=== PATIENT | female | born 1955 | race Caucasian/White ===

== ENCOUNTER 2018-01-03 09:04 | Emergency (ER) | payer SELFPAY ==
[2018-01-03 09:12] VITALS: BMI 34.3
[2018-01-03] MEDS ORDERED: KETOROLAC TROMETHAMINE 30 MG/1 ML VIAL IVPUSH ONE (09:49)
[2018-01-03] MEDS ORDERED: KETOROLAC TROMETHAMINE 30 MG/1 ML VIAL ONE (09:51)
[2018-01-03 10:21] LABS: BASO % 0.6 % (0-2.0); EOS % 3.9 % (0-4.5); HEMATOCRIT 41.6 % (32.4-45.2); HEMOGLOBIN 14.1 GM/dL (10.7-15.3); LYMPH % 33.1 % (8-40); MCH 30.9 pg (25.7-33.7); MCHC 33.9 g/dl (32.0-36.0); MEAN CELL VOLUME 91.3 fl (80-96); MEAN PLT VOLUME 7.5 fl (7.5-11.1); NEUT % 55.4 % (42.8-82.8); PLATELET COUNT 251 K/MM3 (134-434); RBC 4.56 M/mm3 (3.60-5.2); RDW 13.6 % (11.6-15.6); WHITE BLOOD COUNT 6.9 K/mm3 (4.0-10.0)
[2018-01-03 10:48] LABS: ANION GAP 5 (8-16); BLOOD UREA NITROGEN 8 mg/dL (7-18); CALCIUM 9.3 mg/dL (8.5-10.1); CHLORIDE 106 mmol/L (98-107); CO2 31 mmol/L (21-32); CREATININE 0.7 mg/dL (0.55-1.02); GLUCOSE,RANDOM 86 mg/dL (74-106); POTASSIUM 4.6 mmol/L (3.5-5.1); SGOT/AST 15 U/L (15-37); SGPT/ALT 17 U/L (12-78); SODIUM 142 mmol/L (136-145)
[2018-01-03 10:50] LABS: ALK PHOS 105 U/L (45-117); BILIRUBIN,TOTAL 0.4 mg/dL (0.2-1.0); TOT PROT 7.6 g/dl (6.4-8.2)
--- NOTE | 2018-01-03 10:51 | PDOC ---
History of Present Illness - General History Source: Patient - History of Present Illness Timing/Duration: reports: getting worse Abdominal Pain Onset Location: reports: suprapubic <Elizabeth Ruiz - Last Filed: 01/03/18 13:23> <Gregory Wolfe - Last Filed: 01/05/18 18:55> - General Chief Complaint: Pain Stated Complaint: PAIN Time Seen by Provider: 01/03/18 09:36 Past History - Past Medical History COPD: No - Immunization History Immunization Up to Date: Yes - Suicide/Smoking/Psychosocial Hx Smoking History: Never smoked Have you smoked in the past 12 months: No Information on smoking cessation initiated: No Hx Alcohol Use: No Drug/Substance Use Hx: No Substance Use Type: None <Elizabeth Ruiz - Last Filed: 01/03/18 13:23> <YanethGregory - Last Filed: 01/05/18 18:55> - Past Medical History Allergies/Adverse Reactions: Allergies Allergy/AdvReac Type Severity Reaction Status Date / Time No Known Allergies Allergy Verified 01/03/18 09:05 Home Medications: Ambulatory Orders Naproxen 500 mg PO BID #20 tablet 01/03/18 Review of Systems - Review of Systems Constitutional: No: Chills, Fever, Unintentional Wgt. Loss Respiratory: No: Shortness of Breath Cardiac (ROS): No: Chest Pain ABD/GI: Yes: Abdominal cramping. No: Nausea, Vomiting : No: See HPI, Burning, Dysuria, Discharge Musculoskeletal: Yes: Back Pain <Elizabeth Ruiz - Last Filed: 01/03/18 13:23> *Physical Exam - Vital Signs Last Vital Signs Temp Pulse Resp BP Pulse Ox 98.2 F 54 L 18 135/72 100 01/03/18 09:09 01/03/18 09:09 01/03/18 09:09 01/03/18 09:09 01/03/18 09:09 - Physical Exam General Appearance: Yes: Appropriately Dressed, Moderate Distress HEENT: positive: Normal Voice Neck: positive: Supple. negative: Lymphadenopathy (R), Lymphadenopathy (L) Respiratory/Chest: positive: Lungs Clear, Normal Breath Sounds. negative: Respiratory Distress Cardiovascular: positive: Regular Rate, S1, S2 Gastrointestinal/Abdominal: positive: Normal Bowel Sounds, Tender (sig ttp to b/ l suprapubic, no CVAT). negative: Pulsatile Mass, Distended, Guarding, Rebound Musculoskeletal: negative: CVA Tenderness, Vertebral Tenderness Integumentary: positive: Dry, Warm Neurologic: positive: Fully Oriented, Alert, Normal Mood/Affect <Elizabeth Ruiz - Last Filed: 01/03/18 13:23> - Vital Signs Last Vital Signs Temp Pulse Resp BP Pulse Ox 98.6 F 52 L 16 129/58 99 01/03/18 14:03 01/03/18 14:03 01/03/18 14:03 01/03/18 14:03 01/03/18 14:03 <YanethGregory tamez - Last Filed: 01/05/18 18:55> Moderate Sedation - Procedure Monitoring Vital Signs: Vital Signs Temp Pulse Resp BP Pulse Ox 98.2 F 54 L 18 135/72 100 01/03/18 09:09 01/03/18 09:09 01/03/18 09:09 01/03/18 09:09 01/03/18 09:09 <Elizabeth Ruiz - Last Filed: 01/03/18 13:23> ED Treatment Course - LABORATORY CBC & Chemistry Diagram: 01/03/18 10:10 01/03/18 10:10 - ADDITIONAL ORDERS Additional order review: 01/03/18 10:10 RBC 4.56 MCV 91.3 MCHC 33.9 RDW 13.6 MPV 7.5 Neutrophils % 55.4 Lymphocytes % 33.1 D Monocytes % 7.0 Eosinophils % 3.9 Basophils % 0.6 - RADIOLOGY Radiology Studies Ordered: Category Date Time Status ABDOMEN US -LIMITED [US] Stat Ultrasound 01/03/18 09:49 Ordered - Medications Given in the ED: ED Medications Discontinued Medications Generic Name Dose Route Start Last Admin Trade Name Freq PRN Reason Stop Dose Admin Ketorolac Tromethamine 30 mg 01/03/18 09:49 01/03/18 10:02 Toradol Injection - IVPUSH 01/03/18 09:50 30 mg ONCE ONE Administration <Elizabeth Ruiz - Last Filed: 01/03/18 13:23> - LABORATORY CBC & Chemistry Diagram: 01/03/18 10:10 01/03/18 10:10 - ADDITIONAL ORDERS Additional order review: 01/03/18 10:10 RBC 4.56 MCV 91.3 MCHC 33.9 RDW 13.6 MPV 7.5 Neutrophils % 55.4 Lymphocytes % 33.1 D Monocytes % 7.0 Eosinophils % 3.9 Basophils % 0.6 - Medications Given in the ED: ED Medications Discontinued Medications Generic Name Dose Route Start Last Admin Trade Name Thi PRN Reason Stop Dose Admin Ketorolac Tromethamine 30 mg 01/03/18 09:49 01/03/18 10:02 Toradol Injection - IVPUSH 01/03/18 09:50 30 mg ONCE ONE Administration <Gregory Wolfe - Last Filed: 01/05/18 18:55> Medical Decision Making - Medical Decision Making 01/03/18 10:41 62 yo F, no sig hx, p/e severe lower back pain radiating to groin b/l x 1 week, worse today. No dysuria, hematuria, n/v/f/c. Seen at [facility] yesterday and had neg labs and CT a/p + which demonstrated hepatic steatosis, w / moderately distended gallbadder without radiopaque stone or wall thickening. No renal stones, appy or diverticulitis. Pancreas unremarkable and abd aorta normal in caliber as per report that pt has on her person. States she was not sent home w/ pain meds See exam Back/abd pain x 1 week S/p neg labs w/ CT a/p + w/ moderately dilated GB without stones/wall thickening on CT at [facility] yesterday (has report on her person) Etiology unclear at this time -pain control -rpt labs/ua -US assess gallbladder 01/03/18 13:23 Labs unremarkable. Ultrasound read as multiple calculi with contracted gallbladder. No evidence of acute zaheer i.e., wall thickening or fluid. On reassessment, patient appears very comfortable and reports no pain at this time after receiving toradol. Repeat abdominal exam benign with no tenderness currently. Case discussed with Dr. Wolfe who agrees that patient can be discharged with outpatient pain control. Will refer to PMD as patient currently does not have a provider. Reasons to return discussed with patient 01/03/18 13:31 <Elizabeth Ruiz - Last Filed: 01/03/18 13:23> - Medical Decision Making 01/05/18 18:54 The patient was seen and evaluated in conjunction with HEATH Ruiz under my direct supervision, ancillary studies were reviewed. I agree with the plan as outlined by HEATH Ruiz . <Gregory Wolfe - Last Filed: 01/05/18 18:55> *DC/Admit/Observation/Transfer <SaraElizabeth - Last Filed: 01/03/18 13:23> <Gregory Wolfe - Last Filed: 01/05/18 18:55> Diagnosis at time of Disposition: Abdominal pain Qualifiers: Abdominal location: unspecified location Qualified Code(s): R10.9 - Unspecified abdominal pain - Discharge Dispostion Disposition: HOME Condition at time of disposition: Improved - Prescriptions Prescriptions: Naproxen 500 mg PO BID #20 tablet - Referrals Referrals: Leodan Barrera MD [Staff Physician] - - Patient Instructions Additional Instructions: La causa de floyd dolor no est raquel en nikki momento ya que floyd trabajo de laboratorio hoy fue normal. Floyd ultrasonido s mostr clculos en floyd vescula biliar hoy, lexie no hay evidencia de infeccin. Segn floyd ubicacin del dolor, no parece que kayla clculos biliares alo rosemarie diana de floyd dolor en nikki momento. Se le recet naproxeno, tome segn las indicaciones. Por favor, marce un seguimiento con el Dr. Leodan Barrera para kayla necesidades de atencin primaria. Por favor regrese a la tobi de urgencias por cualquier empeoramiento de los sntomas
[2018-01-03 11:16] LABS: URINE APPEARANCE CLEAR; URINE BILIRUBIN NEGATIVE (<2.0 mg/dL); URINE COLOR STRAW; URINE GLUCOSE (UA) NEGATIVE (NEGATIVE); URINE KETONE NEGATIVE (NEGATIVE); URINE LEUK ESTERASE NEGATIVE (NEGATIVE); URINE NITRITE NEGATIVE (NEGATIVE); URINE PROTEIN NEGATIVE (NEGATIVE); URINE UROBILINOGEN NEGATIVE mg/dL (0.2-1.0)
[2018-01-03 14:05] VITALS: BP 129/58; PULSE 52; TEMP 98.6
== END 2018-01-03 14:06 | disposition home or self-care (01) ==
LOC: JER 09:04
PROC: 3E0333Z Introduction of Anti-inflammatory into Peripheral Vein, Percutaneous Approach (ICD-10-PCS; principal; 2018-01-03)
DX: K80.20 Calculus of gallbladder without cholecystitis without obstruction (principal)
CPT/HCPCS: 36415; 76705-TC; 80053; 81003; 83690; 85025; 99284-25

== ENCOUNTER 2018-07-07 19:58 | Inpatient (IN) | payer OTHER ==
--- NOTE | 2018-07-07 20:17 | PDOC ---
Rapid Medical Evaluation Time Seen by Provider: 07/07/18 20:14 Medical Evaluation: Allergies Allergy/AdvReac Type Severity Reaction Status Date / Time No Known Allergies Allergy Verified 01/03/18 09:05 07/07/18 20:14 I have performed a brief in person evaluation of this patient. The patient presents with a chief complaints of: epigastric abd pain with n/v x6 episoades (NBNB) w/o f/c/d. Episodes started at ~1400hrs Pertinent physical exam findings: epigastric pain on palp I have ordered the following: cbc/cmp,iv,pepcid 20mg/Maalox, ekg, zofran 4mg ivp The patient will proceed to the ED for further evaluation.
[2018-07-07] MEDS ORDERED: SODIUM CHLORIDE 1,000 ML IV STA (20:18)
[2018-07-07] MEDS ORDERED: ONDANSETRON 4 MG/2 ML VIAL IVPUSH ONE (20:18)
[2018-07-07] MEDS ORDERED: FAMOTIDINE 20 MG/50 ML IVPB 20 MG/50 ML MG IVPB ONE ×2 (20:19→20:31)
[2018-07-07] MEDS ORDERED: MAG HYDROX/AL HYDROX/SIMETH -MYLANTA- ORAL SUSPENSION PO ONE (20:19)
[2018-07-07] MEDS ORDERED: ONDANSETRON 4 MG/2 ML VIAL ONE (20:31)
[2018-07-07] MEDS ORDERED: MAG HYDROX/AL HYDROX/SIMETH 30 ML UNIT-DOSE CUP ONE (20:31)
[2018-07-07 20:36] LABS: BASO % 0.5 % (0-2.0); EOS % 1.9 % (0-4.5); HEMATOCRIT 42.7 % (32.4-45.2); LYMPH % 22.8 % (8-40); MCH 31.7 pg (25.7-33.7); MCHC 35.1 g/dl (32.0-36.0); MEAN CELL VOLUME 90.3 fl (80-96); MEAN PLT VOLUME 7.9 fl (7.5-11.1); MONO % 4.7 % (3.8-10.2); NEUT % 70.1 % (42.8-82.8); PLATELET COUNT 268 K/MM3 (134-434); RBC 4.73 M/mm3 (3.60-5.2); RDW 13.7 % (11.6-15.6); WHITE BLOOD COUNT 10.8 K/mm3 (4.0-10.0)
[2018-07-07 21:03] LABS: ALBUMIN 4.3 g/dl (3.4-5.0); ALK PHOS 101 U/L (45-117); ANION GAP 9 MMOL/L (8-16); BILIRUBIN,TOTAL 0.4 mg/dL (0.2-1); BLOOD UREA NITROGEN 10 mg/dL (7-18); CALCIUM 9.2 mg/dL (8.5-10.1); CHLORIDE 105 mmol/L (98-107); CO2 27 mmol/L (21-32); CREATININE 0.8 mg/dL (0.55-1.3); GLUCOSE,RANDOM 127 mg/dL (74-106); LIPASE 132 U/L (73-393); POTASSIUM 4.1 mmol/L (3.5-5.1); SGOT/AST 12 U/L (15-37); SGPT/ALT 17 U/L (13-61); SODIUM 141 mmol/L (136-145); TOT PROT 7.7 g/dl (6.4-8.2)
--- NOTE | 2018-07-07 21:27 | PDOC ---
Attending Attestation - HPI HPI: 07/07/18 23:45 The patient is a 62 year old female, with a significant past medical history of gallstones, who presents to the emergency department with, right upper quadrant pain, nausea, and 6 episodes of vomiting. Patient endorses previous episodes in the past (last episode in August). Her symptoms onset after eating tortillas today. Allergies: NKA - Physicial Exam PE: 07/07/18 23:46 Constitutional: Awake, alert, oriented. No acute distress. Head: Normocephalic. Atraumatic Eyes: PERRL. EOMI. Conjunctivae are not pale. ENT: Mucous membranes are moist and intact. Posterior pharynx without exudates or erythema. Uvula midline. Neck: Supple. Full ROM. No lymphadenopathy. Cardiovascular: Regular rate. Regular rhythm. S1, S2 regular. Distal pulses are 2+ and symmetric. Pulmonary/Chest: No evidence of respiratory distress. Clear to auscultation bilaterally No wheezing, rales or rhonchi. +Abdominal: RUQ and epigastric tenderness. Soft and non-distended. No rebound , guarding or rigidity. No organomegaly. No palpable masses. Good bowel sounds. Back: No CVA tenderness. Musculoskeletal: No edema. No cyanosis. No clubbing. Full range of motion in all extremities. No calf tenderness. Radial/pedal pulses are intact and 2+ bilaterally Skin: Skin is warm and dry. No petechiae. No purpura. Neurological: Alert and oriented to person, place, and time. Cranial nerves II -XII are grossly intact. Normal speech. Strength is grossly symmetric. No sensory deficits. Psychiatric: Good eye contact. Normal interaction, affect and behavior. <Nel Mixon - Last Filed: 07/07/18 23:45> - Resident Resident Name: Elisha Paredes - ED Attending Attestation I have performed the following: I have examined & evaluated the patient, The case was reviewed & discussed with the resident, I agree w/resident's findings & plan, Exceptions are as noted - Medical Decision Making 07/07/18 21:31 I, Dr. Chante Jacobs, DO, attest that this document has been prepared under my direction and personally reviewed by me in its entirety. I further attest, that it accurately reflects all work, treatment, procedures and medical decision -making performed by me. 07/07/18 21:31 a/p: 62yo female with RUQ pain assoc with 6 episodes of n/v after eating tortilla and beans earlier today -pain and n/v started at 2p -nbnb vomitus -pt with RUQ ttp -concern for acute zaheer vs pancreatitis vs gastritis -will send labs 07/07/18 21:31 resident performed bedside ultrasound that shows gallstones and a thickened gb wall will send for formal ultrasound for acute zaheer NPO since 2p 07/08/18 02:05 acute zaheer with poss choledocho - MRCP ordered resident discussed the case with Dr. Jain who will see the patient in consult resident discussed the case with MIHAELA who accepts pt to service <Chante Jacobs - Last Filed: 07/08/18 02:05> Heart Score/ECG Review - ECG Intrepretation Comment:: 07/07/18 22:37 sinus brayan at 57, nl axis, nl interval, no acute st/t wave findings <Chante Jacobs - Last Filed: 07/08/18 02:05> Attestations - Attestations 07/07/18 23:47 Documentation prepared by Nel Mixon, acting as medical territory manager for Chante Jacobs DO. <Nel Mixon - Last Filed: 07/07/18 23:45>
--- NOTE | 2018-07-07 21:43 | PDOC ---
History of Present Illness - General Chief Complaint: Pain, Acute Stated Complaint: STOMACH PAIN/VOMITING Time Seen by Provider: 07/07/18 20:14 History Source: Patient, Family Exam Limitations: No Limitations - History of Present Illness Initial Comments: 07/07/18 21:36 This is a 62 YOF with h/o gallstones who p/w one day of epigastric pain radiating to RUQ, nausea, NBNB vomiting x6 episodes, all symptoms worse with eating anything. Last PO intake was about 11:30 am. States this feels similar to prior abdominal pain she had when she was dx with gallstones. Notes chills, but no measured fever, change in skin coloration, abdominal distention, black/ bloody/white stool, chest pain, SOB, lightheadedness, LOC, headache, or other symptoms. Past History - Past Medical History Allergies/Adverse Reactions: Allergies Allergy/AdvReac Type Severity Reaction Status Date / Time No Known Allergies Allergy Verified 07/07/18 20:37 Home Medications: Ambulatory Orders Naproxen 500 mg PO BID #20 tablet 01/03/18 Cancer: No Cardiac Disorders: No CVA: No COPD: No CHF: No - Surgical History Abdominal Surgery: No Appendectomy: No Cardiac Surgery: No Gastric Stapling: No - Immunization History Immunization Up to Date: Yes - Suicide/Smoking/Psychosocial Hx Smoking History: Never smoked Have you smoked in the past 12 months: No Information on smoking cessation initiated: No Hx Alcohol Use: No Drug/Substance Use Hx: No Substance Use Type: None Review of Systems - Review of Systems Able to Perform ROS?: Yes Comments:: GEN: chills, no fever, malaise, generalized weakness, or weight change HEENT: no ear pain, sore throat, vision change, or eye pain CV: no chest pain, palpitations, lightheadedness, syncope, or edema RESP: no cough, wheezing, or SOB GI: abdominal pain, nausea, vomiting, no diarrhea, constipation, or white/black/ bloody stool : no dysuria, hematuria, incontinence, retention, bleeding, or discharge MSK: no neck/back pain, muscle weakness/pain, or joint swelling/pain NEURO: no headache, seizure, vertigo, numbness, tingling, or focal weakness PSYCH: no substance use, no behavior change SKIN: no jaundice, no rash ROS otherwise negative except as noted in HPI *Physical Exam - Vital Signs Last Vital Signs Temp Pulse Resp BP Pulse Ox 98.1 F 60 20 155/77 99 07/07/18 20:18 07/07/18 20:18 07/07/18 20:18 07/07/18 20:18 07/07/18 20:18 07/07/18 21:45 GENERAL: uncomfortable appearing adult female in mild-moderate distress intermittently clutching epigastrium, A/Ox4, accompanied by family member, answers questions appropriately HEENT: PERRLA, EOMI, moist mucous membranes NECK/BACK: no midline ttp, no spinal stepoff or deformity, no hematoma, full ROM , neck supple CARDIOVASCULAR: regular rate/rhythm, normal S1S2, no MGR, strong peripheral pulses, capillary refill <2 seconds, extremities wwp, no edema LUNGS/RESPIRATORY: no respiratory distress, CTAB GI/ABDOMEN: obese, symmetric [id number], normoactive BS, soft, moderate epigastric and mild RUQ ttp with positive Verdugo sign, no midline pulsatile masses, no peritoneal signs : no CVA tenderness EXTREMITIES: no muscle atrophy, no acute deformity, no edema SKIN: warm and dry, no pallor, no jaundice, no rash, no bruising, no skin breakdown, no cuts, no lesions NEUROLOGICAL: GCS 15, CN II-XII grossly intact, 5/5 strength proximally and distally, no facial droop Procedures - Bedside Ultrasound Remarks: STUDY: RUQ/Gallbladder/CBD INDICATION: Epigastric and RUQ pain, nausea, vomiting FINDINGS: GB wall thickening and distention, no pericholecystic fluid, +many stones, CBD 0.71cm CONCLUSION: Likely choledocholithiasis with cholecystitis Heart Score/ECG Review #1 07/08/18 00:49 Sinus rhythm, rate of 57, normal axis and intervals, no ischemic ST-T changes ED Treatment Course - LABORATORY CBC & Chemistry Diagram: 07/08/18 08:00 07/08/18 08:00 - ADDITIONAL ORDERS Additional order review: Laboratory Results 07/07/18 07/07/18 20:20 20:20 WBC 10.8 H RBC 4.73 Hgb 15.0 Hct 42.7 MCV 90.3 MCH 31.7 MCHC 35.1 RDW 13.7 Plt Count 268 MPV 7.9 Absolute Neuts (auto) 7.6 Neutrophils % 70.1 D Lymphocytes % 22.8 D Monocytes % 4.7 Eosinophils % 1.9 Basophils % 0.5 Nucleated RBC % 0 Sodium 141 Potassium 4.1 Chloride 105 Carbon Dioxide 27 Anion Gap 9 BUN 10 Creatinine 0.8 Creat Clearance w eGFR > 60 Random Glucose 127 H Calcium 9.2 Total Bilirubin 0.4 AST 12 L ALT 17 Alkaline Phosphatase 101 Total Protein 7.7 Albumin 4.3 Lipase 132 07/07/18 20:20 RBC 4.73 MCV 90.3 MCHC 35.1 RDW 13.7 MPV 7.9 Neutrophils % 70.1 D Lymphocytes % 22.8 D Monocytes % 4.7 Eosinophils % 1.9 Basophils % 0.5 - Medications Given in the ED: ED Medications Discontinued Medications Generic Name Dose Route Start Last Admin Trade Name Freq PRN Reason Stop Dose Admin Al Hydroxide/Mg Hydroxide 30 ml 07/07/18 20:19 07/07/18 20:32 Mylanta Suspension - PO 07/07/18 20:20 30 ml ONCE ONE Administration Famotidine/Sodium Chloride 20 mg in 50 mls @ 100 mls/hr 07/07/18 20:19 20:32 Pepcid 20 Mg Premixed Ivpb - IVPB 07/07/18 20:48 100 mls/hr ONCE ONE Administration Sodium Chloride 1,000 mls @ 1,000 mls/hr 07/07/18 20:18 07/07/18 20:32 Normal Saline - IV 07/07/18 21:17 1,000 mls/hr ASDIR STA Administration Ondansetron HCl 4 mg 07/07/18 20:18 07/07/18 20:32 Zofran Injection IVPUSH 07/07/18 20:19 4 mg ONCE ONE Administration Medical Decision Making - Medical Decision Making Adult female Pt p/w epigastric and RUQ abdominal pain. Initial Vital Signs Temp Pulse Resp BP Pulse Ox 98.1 F 60 20 155/77 99 07/07/18 20:18 07/07/18 20:18 07/07/18 20:18 07/07/18 20:18 07/07/18 20:18 Exam: As noted in Physical Exam section. DDX IBNLT: cholecystitis (calculous vs. acalculous), choledocholithiasis, cholangitis, pancreatitis, gastritis, PUD, colitis; much less likely appendicitis, diverticulitis wwo abscess or perforation, renal colic, obstructive uropathy, UTI/pyelonephritis, hernia, SBO, mesenteric/bowel ischemia , bowel perforation, malignancy, PID, TOA, constipation, gas, musculoskeletal, etc. W/U ordered: CBCD CMP Mg Phos Lipase CXR EKG RUQ US TX ordered: IVF, Ofirmev, Maalox, Pepcid, Zofran 07/07/18 21:30 RUQ POCUS suggestive of choledocholithiasis with cholecystitis, will get formal US and await labs. EKG: Reviewed; results as noted in ECG Review section. Laboratory Tests 07/07/18 07/07/18 07/07/18 20:20 20:20 21:39 WBC 10.8 H RBC 4.73 Hgb 15.0 Hct 42.7 MCV 90.3 MCH 31.7 MCHC 35.1 RDW 13.7 Plt Count 268 MPV 7.9 Absolute Neuts (auto) 7.6 Neutrophils % 70.1 D Lymphocytes % 22.8 D Monocytes % 4.7 Eosinophils % 1.9 Basophils % 0.5 Nucleated RBC % 0 PT with INR 11.90 INR 1.01 Sodium 141 Potassium 4.1 Chloride 105 Carbon Dioxide 27 Anion Gap 9 BUN 10 Creatinine 0.8 Creat Clearance w eGFR > 60 Random Glucose 127 H Calcium 9.2 Total Bilirubin 0.4 AST 12 L ALT 17 Alkaline Phosphatase 101 Total Protein 7.7 Albumin 4.3 Lipase 132 Urine Color Urine Appearance Urine pH Ur Specific [place] Urine Protein Urine Glucose (UA) Urine Ketones Urine Blood Urine Nitrite Urine Bilirubin Urine Urobilinogen Ur Leukocyte Esterase Blood Type Antibody Screen 07/07/18 07/07/18 21:39 23:55 WBC RBC Hgb Hct MCV MCH MCHC RDW Plt Count MPV Absolute Neuts (auto) Neutrophils % Lymphocytes % Monocytes % Eosinophils % Basophils % Nucleated RBC % PT with INR INR Sodium Potassium Chloride Carbon Dioxide Anion Gap BUN Creatinine Creat Clearance w eGFR Random Glucose Calcium Total Bilirubin AST ALT Alkaline Phosphatase Total Protein Albumin Lipase Urine Color Straw Urine Appearance Clear Urine pH 7.0 D Ur Specific [place] 1.006 L Urine Protein Negative Urine Glucose (UA) Negative Urine Ketones Trace H Urine Blood Negative Urine Nitrite Negative Urine Bilirubin Negative Urine Urobilinogen Negative Ur Leukocyte Esterase Negative Blood Type O POSITIVE Antibody Screen Negative RAD/CHEST X-RAY PORTABLE* Chest: Admission A single AP view of the chest reveals a weak inspiration with prominent mediastinum and sharp angles. There is some minimal central crowding. There is a left base granuloma. Correlation recommended. US/ABDOMEN US -LIMITED Right upper quadrant abdomen ultrasound Clinical information: right upper quadrant pain, nausea/emesis Multiple gallbladder calculi are noted. In comparison to a prior ultrasound study of 01/03/2018 development of mild to moderate gallbladder overdistention is seen. On the current exam there is mild diffuse gallbladder wall thickening which may be slightly increased since the previous exam. No pericholecystic fluid is identified. The common bile duct diameter appears borderline measuring 0.6 - 0.7 cm. On the previous study the common bile duct diameter was measured as 0.5 cm although this difference could be on a technical basis (versus representing interval mild change). No obvious intraductal calculus is identified within the limitations of transabdominal sonography. There is possible diffuse fatty infiltration of the liver as on the prior study. The liver appears unremarkable in overall size and contour. No obvious mass lesion is seen. No free intraperitoneal fluid is noted. The partially visualized pancreas demonstrate no obvious pathology. There is no right hydronephrosis. Right kidney demonstrates no sonographic abnormality. Impression: Cholelithiasis is seen as on a previous study of 01/03/2018. Development of mild to moderate nonspecific gallbladder overdistention is noted as well as increased diffuse wall thickening which could be on the basis of acute cholecystitis. The common bile duct diameter appears borderline measuring 0.6 to 0.7 cm. Since the previous exam a possible slight increase in ductal diameter is noted (versus representing technical variation). CT evaluation may be considered as well as MRI/MRCP. Reassessment: Patient states still painful/tender. The Pts symptoms persist despite ED treatments. The Pt is unsafe for discharge at this time. They require further hospital observation, workup, and treatment. Microblog sent to [facility] for admission. Blank Decision to Admit order is placed per ED protocol. Consult order placed to Sara Carvajal ordered, MRCP order placed. 07/08/18 01:12 I spoke with admitting team rep, corrected Decision to Admit order with Dr. Gaspar's name. *DC/Admit/Observation/Transfer Diagnosis at time of Disposition: Cholecystitis, Choledocholithiasis - Discharge Dispostion Condition at time of disposition: Guarded Decision to Admit order: Yes - Referrals - Patient Instructions - Post Discharge Activity
[2018-07-07] MEDS ORDERED: ACETAMINOPHEN 1000 MG/100 ML VIAL (NON FORMULARY) IVPB ONE (21:52)
[2018-07-07 22:14] LABS: INR 1.01 (0.83-1.09); PROTHROMBIN TIME (PATIENT) 11.9 SEC (9.7-13.0)
[2018-07-07] MEDS ORDERED: ACETAMINOPHEN INJECTION 100 ML IVPB ONE (23:06)
[2018-07-08 00:16] LABS: URINE APPEARANCE CLEAR; URINE BILIRUBIN NEGATIVE (<2.0 mg/dL); URINE COLOR STRAW; URINE GLUCOSE (UA) NEGATIVE (NEGATIVE); URINE KETONE TRACE (NEGATIVE); URINE LEUK ESTERASE NEGATIVE (NEGATIVE); URINE NITRITE NEGATIVE (NEGATIVE); URINE PROTEIN NEGATIVE (NEGATIVE); URINE UROBILINOGEN NEGATIVE mg/dL (0.2-1.0)
[2018-07-08] MEDS ORDERED: PIPERACILLIN/TAZOB 4.5 GM 4.5 GM in DEXTROSE 5%-WATER 100 ML IVPB ONE (00:52)
[2018-07-08] MEDS ORDERED: PIPERACILLIN/TAZOB 4.5 GM 4.5 GM/100 ML BAG IVPB ONE (01:10)
--- NOTE | 2018-07-08 01:49 | PN ---
Teaching Attending Note Name of Resident: Leanne Lock ATTENDING PHYSICIAN STATEMENT I saw and evaluated the patient. I reviewed the resident's note and discussed the case with the resident. I agree with the resident's findings and plan as documented. SUBJECTIVE: Patient is a 62 year old woman with history of gallstones who presents with one day of epigastric pain radiating to RUQ, nausea, NBNB vomiting x6 episodes, all symptoms worse with eating anything. Last PO intake was about 11:30 am. States this feels similar to prior abdominal pain she had when she was dx with gallstones. Notes chills, but no measured fever, change in skin coloration, abdominal distention, black/bloody/white stool, chest pain, SOB, lightheadedness , LOC, headache, or other symptoms. OBJECTIVE: Alert Vital Signs Period Temp Pulse Resp BP Sys/Parsons Pulse Ox Last 24 Hr 98.1 F 60 20 155/77 99 HEENT: No Jaundice, eye redness or discharge, PERRLA, EOMI. Normocephalic, atraumatic. External ears are normal and hearing is grossly intact. No nasal discharge. Neck: Supple, nontender. No palpable adenopathy or thyromegaly. No JVD Chest: Good effort. Clear to auscultation and percussion. Heart: Regular. No S3, rub or murmur Abdomen: Not distended, soft, tender RUQ and epigastrium; no HSM. No rebound or guarding. Normoactive bowel sounds. Ext: Peripheral pulses intact. No leg edema. Skin: Warm and dry. No petechiae, rash or ecchymosis. Neuro: Alert. Oriented x3. CN 2-12 grossly intact. Sensation grossly intact in all four extremities and DTR are symmetric. Home Medications Medication Instructions Recorded Naproxen 500 mg PO BID #20 tablet 01/03/18 Abnormal Lab Results 07/07/18 07/07/18 07/07/18 20:20 20:20 23:55 WBC 10.8 H Random Glucose 127 H AST 12 L Ur Specific [place] 1.006 L Urine Ketones Trace H ASSESSMENT AND PLAN: 1. Choledocholithiasis with possible cholecystitis - Will continue IV zosyn and get MRCP. Surgery and GI consults. Keep her NPO and give D5-1/2NS. Restart home antihypertensive drugs to attain normotension and stress nonpharmacologic measures to control hypertension. Check HbA1c. 2. DVT prophylaxis - SCD, TEDs. Lovenox 40 mg SQ q 24 hours. 3. Advance directives - Full code
--- NOTE | 2018-07-08 03:57 | HP ---
CHIEF COMPLAINT: epigastric pain PCP: HISTORY OF PRESENT ILLNESS: Patient is a 62 y/o female with a history of cholelithiasis who presents with mid epigastric pain. Patient reports it began about 4 hours ago today. She was not doing anything different at the time. She reports she ate tortilla chips and beans during the day which is not out of the normal for her. She denies having this pain often in the past, but she thinks she used to get it with eating fatty foods so she tried to stop eating those kinds of foods and has not had the pain as a result. The pain is non radiating and nothing makes it better. She had a few episodes of NBNB vomiting. She currently denies fever, chills, chest pain, diarrhea, or shortness of breath. Patient denies any sick contacts and denies recent travel. Patient does not work and lives in [place]. ER course was notable for: (1) (2) (3) Recent Travel: denies PAST MEDICAL HISTORY: cholelithiasis PAST SURGICAL HISTORY: denies Social History: Smoking: denies Alcohol: denies Drugs: denies Family History: Allergies No Known Allergies Allergy (Verified 07/07/18 20:37) HOME MEDICATIONS: Home Medications Medication Instructions Recorded Naproxen 500 mg PO BID #20 tablet 01/03/18 REVIEW OF SYSTEMS CONSTITUTIONAL: Absent: fever, chills, diaphoresis, generalized weakness, malaise, loss of appetite, weight change HEENT: Absent: rhinorrhea, nasal congestion, throat pain, throat swelling, difficulty swallowing, mouth swelling, ear pain, eye pain, visual changes CARDIOVASCULAR: Absent: chest pain, syncope, palpitations, irregular heart rate, lightheadedness , peripheral edema RESPIRATORY: Absent: cough, shortness of breath, dyspnea with exertion, orthopnea, wheezing, stridor, hemoptysis GASTROINTESTINAL: epigastric pain Absent: abdominal pain, abdominal distension, nausea, vomiting, diarrhea, constipation, melena, hematochezia GENITOURINARY: Absent: dysuria, frequency, urgency, hesitancy, hematuria, flank pain, genital pain MUSCULOSKELETAL: Absent: myalgia, arthralgia, joint swelling, back pain, neck pain SKIN: Absent: rash, itching, pallor HEMATOLOGIC/IMMUNOLOGIC: Absent: easy bleeding, easy bruising, lymphadenopathy, frequent infections ENDOCRINE: Absent: unexplained weight gain, unexplained weight loss, heat intolerance, cold intolerance NEUROLOGIC: Absent: headache, focal weakness or paresthesias, dizziness, unsteady gait, seizure, mental status changes, bladder or bowel incontinence PSYCHIATRIC: Absent: anxiety, depression, suicidal or homicidal ideation, hallucinations. PHYSICAL EXAMINATION Vital Signs - 24 hr 07/07/18 07/08/18 20:18 02:51 Temperature 98.1 F 98.2 F Pulse Rate 60 Pulse Rate [ 61 Right Apical] Respiratory 20 18 Rate Blood Pressure 155/77 Blood Pressure 109/67 [Right Arm] O2 Sat by Pulse 99 97 Oximetry (%) GENERAL: Awake, alert, and fully oriented, in no acute distress. HEAD: Normal with no signs of trauma. EYES: Pupils equal, round and reactive to light, extraocular movements intact EARS, NOSE, THROAT: Moist mucous membranes. LUNGS: Breath sounds equal, clear to auscultation bilaterally. No wheezes, and no crackles. No accessory muscle use. HEART: Regular rate and rhythm, normal S1 and S2 without murmur, rub or gallop. ABDOMEN: tenderness to palpation, positive murphys sign, positive bowel sounds LOWER EXTREMITIES: 2+ pulses, warm, well-perfused. No calf tenderness. No peripheral edema. NEUROLOGICAL: Cranial nerves II-XII intact. Normal speech. PSYCHIATRIC: Cooperative. Good eye contact. Appropriate mood and affect. SKIN: Warm, dry, normal turgor, no rashes or lesions noted, normal capillary refill. CBC, BMP 07/07/18 20:20 07/07/18 20:20 ASSESSMENT/PLAN: Patient is a 62 y/o female with a history of gallstones who presents with mid epigastric pain. #mid epigastric pain 2/2 to likely choledocholithiasis - ED discussed with Dr. Jain, patient will be evaluated in the morning - patient NPO - continue Zosyn for coverage - patient afebrile - abd US: possible choledocholithiasis, possible cholelithtiasis, CBD: .6-.7 - MATTSON score of 0% risk for perioperative - f/u MRI abdomen - on D5 1/2 NS @ 100 #DVT ppx - heparin held in case preop - patient on SCD's Dispo: ED discussed with Dr. Jain for possibility of surgery Visit type - Emergency Visit Emergency Visit: Yes ED Registration Date: 07/08/18 Care time: The patient presented to the Emergency Department on the above date and was hospitalized for further evaluation of their emergent condition. - New Patient This patient is new to me today: Yes Date on this admission: 07/08/18 - Critical Care Critical Care patient: No
[2018-07-08] MEDS: DEXTROSE 5%-0.45% SALINE 1,000 ML IV SCH ×2 (04:15→15:38)
[2018-07-08] MEDS ORDERED: FLU VACCINE QUAD 60 MCG/0.5 ML (MDV 18-19) IM ONE ×2 (04:27→10:00)
[2018-07-08 05:07] VITALS: BMI 32.1
[2018-07-08 08:38] LABS: BASO % 0.4 % (0-2.0); EOS % 2.6 % (0-4.5); HEMATOCRIT 39.4 % (32.4-45.2); HEMOGLOBIN 12.8 GM/dL (10.7-15.3); LYMPH % 35.5 % (8-40); MCHC 32.5 g/dl (32.0-36.0); MEAN CELL VOLUME 92.4 fl (80-96); MEAN PLT VOLUME 7.9 fl (7.5-11.1); MONO % 8.1 % (3.8-10.2); NEUT % 53.4 % (42.8-82.8); PLATELET COUNT 215 K/MM3 (134-434); RBC 4.27 M/mm3 (3.60-5.2); RDW 13.8 % (11.6-15.6); WHITE BLOOD COUNT 8.7 K/mm3 (4.0-10.0)
[2018-07-08] MEDS ORDERED: PIPERACILLIN/TAZOB 4.5 GM 4.5 GM in DEXTROSE 5%-WATER 100 ML IVPB SCH (09:00)
[2018-07-08] MEDS ORDERED: PIPERACILLIN/TAZOBACTAM 4.5 GM VIAL IVPB ONE (09:01)
[2018-07-08] MEDS ORDERED: DEXTROSE 5%-WATER 100 ML IVPB ONE (09:01)
[2018-07-08 09:22] LABS: BLOOD UREA NITROGEN 8 mg/dL (7-18); GLUCOSE,RANDOM 93 mg/dL (74-106)
[2018-07-08 09:23] LABS: ALBUMIN 3.3 g/dl (3.4-5.0); ALK PHOS 79 U/L (45-117); ANION GAP 7 MMOL/L (8-16); BILIRUBIN,TOTAL 0.4 mg/dL (0.2-1); CALCIUM 8.2 mg/dL (8.5-10.1); CHLORIDE 109 mmol/L (98-107); CO2 28 mmol/L (21-32); CREATININE 0.7 mg/dL (0.55-1.3); MAGNESIUM 2.1 mg/dL (1.8-2.4); PHOSPHOROUS 3.2 mg/dL (2.5-4.9); SGOT/AST 10 U/L (15-37); SGPT/ALT 15 U/L (13-61); SODIUM 143 mmol/L (136-145); TOT PROT 6.1 g/dl (6.4-8.2)
--- NOTE | 2018-07-08 09:42 | HOSP ---
Subjective - Review of Symptoms Events since last encounter: Patient feels comfortable with no acute distress, no fever or chills. Vital Signs Temperature 97.5 F L 07/08/18 05:04 Pulse Rate 52 L 07/08/18 05:04 Respiratory Rate 18 07/08/18 05:04 Blood Pressure 149/84 07/08/18 05:04 O2 Sat by Pulse Oximetry (%) 97 07/08/18 04:24 GENERAL: Awake, alert, and fully oriented, in no acute distress. HEAD: Normal with no signs of trauma. EYES: Pupils equal, round and reactive to light, extraocular movements intact EARS, NOSE, THROAT: Moist mucous membranes. LUNGS: Breath sounds equal, clear to auscultation bilaterally. No wheezes, and no crackles. No accessory muscle use. HEART: Regular rate and rhythm, normal S1 and S2 without murmur, rub or gallop. ABDOMEN: mild abdominal tenderness to palpation, positive bowel sounds LOWER EXTREMITIES: 2+ pulses, warm, well-perfused. No calf tenderness. No peripheral edema. NEUROLOGICAL: Cranial nerves II-XII intact. Normal speech. PSYCHIATRIC: Cooperative. Good eye contact. Appropriate mood and affect. SKIN: Warm, dry, normal turgor, no rashes or lesions noted, normal capillary refill. CBCD WBC 8.7 K/mm3 (4.0-10.0) 07/08/18 08:00 RBC 4.27 M/mm3 (3.60-5.2) 07/08/18 08:00 Hgb 12.8 GM/dL (10.7-15.3) 07/08/18 08:00 Hct 39.4 % (32.4-45.2) 07/08/18 08:00 MCV 92.4 fl (80-96) 07/08/18 08:00 MCHC 32.5 g/dl (32.0-36.0) 07/08/18 08:00 RDW 13.8 % (11.6-15.6) 07/08/18 08:00 Plt Count 215 K/MM3 (134-434) 07/08/18 08:00 MPV 7.9 fl (7.5-11.1) 07/08/18 08:00 CMP Sodium 143 mmol/L (136-145) 07/08/18 08:00 Potassium 4.0 mmol/L (3.5-5.1) 07/08/18 08:00 Chloride 109 mmol/L (98-107) H 07/08/18 08:00 Carbon Dioxide 28 mmol/L (21-32) 07/08/18 08:00 Anion Gap 7 MMOL/L (8-16) L 07/08/18 08:00 BUN 8 mg/dL (7-18) 07/08/18 08:00 Creatinine 0.7 mg/dL (0.55-1.3) 07/08/18 08:00 Creat Clearance w eGFR > 60 (>60) 07/08/18 08:00 Random Glucose 93 mg/dL (74-106) 07/08/18 08:00 Calcium 8.2 mg/dL (8.5-10.1) L 07/08/18 08:00 Total Bilirubin 0.4 mg/dL (0.2-1) 07/08/18 08:00 AST 10 U/L (15-37) L 07/08/18 08:00 ALT 15 U/L (13-61) 07/08/18 08:00 Alkaline Phosphatase 79 U/L (45-117) 07/08/18 08:00 Total Protein 6.1 g/dl (6.4-8.2) L 07/08/18 08:00 Albumin 3.3 g/dl (3.4-5.0) L 07/08/18 08:00 Current Medications Generic Name Dose Route Start Last Admin Trade Name Freq PRN Reason Stop Dose Admin Dextrose/Sodium Chloride 1,000 mls @ 100 mls/hr 07/08/18 03:30 07/08/18 04:15 D5-1/2ns - IV 100 mls/hr ASDIR DAVID Administration Piperacillin Sod/Tazobactam 100 mls @ 200 mls/hr 07/08/18 09:00 Sod 4.5 gm/ Dextrose IVPB Q6H-IV DAVID Protocol Piperacillin Sod/Tazobactam 100 mls @ 200 mls/hr 07/08/18 09:00 07/08/18 09: 40 Sod 4.5 gm/ Dextrose IVPB 07/09/18 03:29 200 mls/hr Q6H-IV DAVID Administration Protocol Influenza Virus Vaccine Quadrival 60 mcg 07/08/18 10:00 Flulaval Quad [id number] IM 07/08/18 10:01 .ONCE ONE Home Medications Medication Instructions Recorded Naproxen 500 mg PO BID #20 tablet 01/03/18 Assessment and plan: Patient is a 62 y/o female with a history of gallstones who presents with mid epigastric pain. #Acute biliary colic; US positive for cholelithiasis; dev't r/o choledocholithiasis/Cholecystitis pending MRCP surgical evaluation appreciated. , ID on the case on IV Antibiotics Zosyn #DVT ppx: SCD's Physical Examination Vital Signs: Vital Signs Temperature 97.5 F L 07/08/18 05:04 Pulse Rate 52 L 07/08/18 05:04 Respiratory Rate 18 07/08/18 05:04 Blood Pressure 149/84 07/08/18 05:04 O2 Sat by Pulse Oximetry (%) 97 07/08/18 04:24 Labs: CBC, BMP 07/08/18 08:00 07/08/18 08:00
[2018-07-08] MEDS ORDERED: morphine SULFATE 4 MG/ML VIAL IVPUSH PRN (11:28)
--- NOTE | 2018-07-08 11:47 | CONSULT ---
- Consultation REQUESTING PROVIDER: CONSULT REQUEST: We have been asked to surgically evaluate this patient for ( specify). PCP:Edgar Doherty HISTORY OF PRESENT ILLNESS: PMHx: PSHx: Home Medications Medication Instructions Recorded Naproxen 500 mg PO BID #20 tablet 01/03/18 Allergies Allergy/AdvReac Type Severity Reaction Status Date / Time No Known Allergies Allergy Verified 07/07/18 20:37 REVIEW OF SYSTEMS: CONSTITUTIONAL: Absent: fever, chills, diaphoresis, generalized weakness, malaise, loss of appetite, weight change CARDIOVASCULAR: Absent: chest pain, syncope, palpitations, irregular heart rate, lightheadedness , peripheral edema RESPIRATORY: Absent: cough, shortness of breath, dyspnea with exertion, wheezing, stridor, hemoptysis GASTROINTESTINAL: Absent: abdominal pain, abdominal distension, nausea, vomiting, diarrhea, constipation, melena, hematochezia GENITOURINARY: Absent: dysuria, frequency, urgency, hesitancy, hematuria, flank pain, genital pain MUSCULOSKELETAL: Absent: myalgia, arthralgia, joint swelling, back pain, neck pain SKIN: Absent: rash, itching, pallor HEMATOLOGIC/IMMUNOLOGIC: Absent: easy bleeding, easy bruising, lymphadenopathy NEUROLOGIC: Absent: headache, focal weakness, paresthesias, dizziness, unsteady gait, seizure, mental status changes, bladder or bowel incontinence PSYCHIATRIC: Absent: anxiety, depression, suicidal or homicidal ideation, hallucinations. PHYSICAL EXAM: GENERAL: Awake, alert, and fully oriented, in no acute distress. HEAD: Normal with no signs of trauma. EYES: PERRL, sclera anicteric, conjunctiva clear. NECK: Normal ROM, supple without lymphadenopathy, JVD, or masses. LUNGS: Clear to auscultation bilat anteriorly. No wheezes, and no crackles. No accessory muscle use. HEART: Regular rate and rhythm. No murmurs ABDOMEN: Soft, nontender, not distended, normoactive bowel sounds, no guarding, no rebound, no masses. No organomegaly. MUSCULOSKELETAL: Normal ROM at all joints. No bony deformities or tenderness. No CVA tenderness. UPPER EXTREMITIES: 2+ pulses, warm, well-perfused. No cyanosis. Cap refill <2 seconds. No peripheral edema. LOWER EXTREMITIES: 2+ pulses, warm, well-perfused. No calf tenderness. No peripheral edema. NEUROLOGICAL: Normal speech, gait not observed. PSYCH: Cooperative. Good eye contact. Appropriate mood and affect. SKIN: Warm, dry, normal turgor, no rashes or lesions noted. Vital Signs Temperature 97.5 F L 07/08/18 05:04 Pulse Rate 52 L 07/08/18 05:04 Respiratory Rate 18 07/08/18 05:04 Blood Pressure 149/84 07/08/18 05:04 O2 Sat by Pulse Oximetry (%) 97 07/08/18 04:24 Lab Results WBC 8.7 K/mm3 (4.0-10.0) 07/08/18 08:00 RBC 4.27 M/mm3 (3.60-5.2) 07/08/18 08:00 Hgb 12.8 GM/dL (10.7-15.3) 07/08/18 08:00 Hct 39.4 % (32.4-45.2) 07/08/18 08:00 MCV 92.4 fl (80-96) 07/08/18 08:00 MCHC 32.5 g/dl (32.0-36.0) 07/08/18 08:00 RDW 13.8 % (11.6-15.6) 07/08/18 08:00 Plt Count 215 K/MM3 (134-434) 07/08/18 08:00 Sodium 143 mmol/L (136-145) 07/08/18 08:00 Potassium 4.0 mmol/L (3.5-5.1) 07/08/18 08:00 Chloride 109 mmol/L (98-107) H 07/08/18 08:00 Carbon Dioxide 28 mmol/L (21-32) 07/08/18 08:00 Anion Gap 7 MMOL/L (8-16) L 07/08/18 08:00 BUN 8 mg/dL (7-18) 07/08/18 08:00 Creatinine 0.7 mg/dL (0.55-1.3) 07/08/18 08:00 Random Glucose 93 mg/dL (74-106) 07/08/18 08:00 Calcium 8.2 mg/dL (8.5-10.1) L 07/08/18 08:00 Blood Type O POSITIVE 07/07/18 23:55 Antibody Screen Negative 07/07/18 21:39 INR 1.01 (0.83-1.09) 07/07/18 21:39 IMP: biliary colic; cholelithiasis; r/o choledocholithiasis PLAN: NPO/IVF/MRCP; if MRCP negative for lap zaheer 07/10/18; if not will need GI evaluation for ERCP and related procedures; d/w patient and son in Bengali.
--- NOTE | 2018-07-08 11:59 | EKG ---
Test Reason : Blood Pressure : / mmHG Vent. Rate : 058 BPM Atrial Rate : 058 BPM P-R Int : 156 ms QRS Dur : 092 ms QT Int : 414 ms P-R-T Axes : 049 018 042 degrees QTc Int : 406 ms SINUS BRADYCARDIA OTHERWISE NORMAL ECG NO PREVIOUS ECGS AVAILABLE Confirmed by LORI DURBIN MD ([id number]) on 07/08/2018 11:59:28 AM Referred By: Confirmed By:LORI DURBIN MD
[2018-07-08] MEDS ORDERED: PIPERACILLIN/TAZOB 3.375 GM 3.375 GM in DEXTROSE 5%-WATER - 50 ML IVPB SCH (14:30)
[2018-07-08] MEDS ORDERED: PIPERACILLIN/TAZOBACTAM 3.375 GM VIAL IVPB ONE ×2 (14:55→21:44)
[2018-07-08] MEDS ORDERED: DEXTROSE 5%-WATER - 50 ML IVPB ONE ×2 (14:55→21:44)
[2018-07-08] MEDS: PIPERACILLIN/TAZOB 3.375 GM 3.375 GM in DEXTROSE 5%-WATER - 50 ML IVPB SCH (21:45)
[2018-07-09] MEDS ORDERED: PIPERACILLIN/TAZOBACTAM 3.375 GM VIAL IVPB ONE ×3 (00:55→17:12)
[2018-07-09] MEDS ORDERED: DEXTROSE 5%-WATER - 50 ML IVPB ONE ×3 (00:56→17:12)
[2018-07-09] MEDS: PIPERACILLIN/TAZOB 3.375 GM 3.375 GM in DEXTROSE 5%-WATER - 50 ML IVPB SCH ×3 (02:05→17:24)
[2018-07-09] MEDS: DEXTROSE 5%-0.45% SALINE 1,000 ML IV SCH ×3 (06:12→15:55)
[2018-07-09] MEDS ORDERED: PIPERACILLIN/TAZOB 3.375 GM 3.375 GM in DEXTROSE 5%-WATER - 50 ML IVPB SCH (10:00)
--- NOTE | 2018-07-09 10:22 | PN ---
Progress Note (short form) - Note Progress Note: Attending Surgeon c/o headache; no abdo pain; nausea or vomiting abdo-soft; flat and non tender WBC-nl MRCP results pending IMP: improved PLAN: clear liquids today and NPO after MN for lap zaheer 07/10/18; r/b/t/a/'s d/ w the patient in [place]. Chirag Jain MD FACS
[2018-07-09] MEDS ORDERED: ACETAMINOPHEN 325 MG TABLET (FP) PO PRN (10:23)
--- NOTE | 2018-07-09 10:58 | PN ---
Physical Exam: SUBJECTIVE: Patient seen and examined no current complaints; resting comfortable in bed. Denies, n, v, fever, chills. OBJECTIVE: Vital Signs Period Temp Pulse Resp BP Sys/Parsons Pulse Ox Last 24 Hr 98.1 F-98.8 F 61-62 18-18 120-133/71-75 97-97 GENERAL: The patient is awake, alert, and fully oriented, in no acute distress. HEAD: Normal with no signs of trauma. EYES: PERRL, extraocular movements intact, sclera anicteric, conjunctiva clear. No ptosis. LUNGS: Breath sounds equal, clear to auscultation bilaterally, no wheezes, no crackles, no accessory muscle use. HEART: Regular rate and rhythm, S1, S2 without murmur, rub or gallop. ABDOMEN: Soft, mild tenderness RUQ , nondistended, normoactive bowel sounds, no guarding, no rebound, no hepatosplenomegaly, no masses. EXTREMITIES: 2+ pulses, warm, well-perfused, no edema. NEUROLOGICAL: Cranial nerves II through XII grossly intact. Normal speech, gait not observed. PSYCH: Normal mood, normal affect. SKIN: Warm, dry, normal turgor, no rashes or lesions noted Active Medications Generic Name Dose Route Start Last Admin Trade Name Freq PRN Reason Stop Dose Admin Acetaminophen 650 mg 07/09/18 10:23 07/09/18 10:38 Tylenol - PO 650 mg Q6H PRN Administration HEADACHE Dextrose/Sodium Chloride 1,000 mls @ 100 mls/hr 07/08/18 03:30 07/09/18 06:13 D5-1/2ns - IV 100 mls/hr ASDIR DAVID Administration Piperacillin Sod/Tazobactam 50 mls @ 100 mls/hr 07/08/18 20:00 07/09/18 09:30 Sod 3.375 gm/ Dextrose IVPB 100 mls/hr Q8H-IV DAVID Administration Protocol Morphine Sulfate 4 mg 07/08/18 11:28 07/08/18 12:46 Morphine Sulfate IVPUSH 4 mg Q4H PRN Administration PAIN LEVEL 6-10 ASSESSMENT/PLAN: This is a 62 year old female with a history of choledolithiasis, presenting with nausea, billious vomiting. #choledolithiasis: -pending MRCP; -clear liquids today; then NPO midnight -if MRCP negative plan for lap choley -ID/Surgery following Diet: clear for now; npo at MN vte ppl; scds Disposition: monitor on floors pending studies; possible surgery Visit type - Emergency Visit Emergency Visit: Yes ED Registration Date: 07/08/18 Care time: The patient presented to the Emergency Department on the above date and was hospitalized for further evaluation of their emergent condition. - New Patient This patient is new to me today: Yes Date on this admission: 07/09/18 - Critical Care Critical Care patient: No
--- NOTE | 2018-07-09 14:23 | CON.ID ---
Consult Consult Specialty:: infectious disease Referred by:: hospitalist Reason for Consultation:: possible choledocholithiasis - History of Present Illness Chief Complaint: abdominal pain ,nausea and vomiting History of Present Illness: 62 yo helen moore one day history of abodminal pain RUQ with nausea and vomiting +chills no fevers MH of gallstones prior episode in December 2017 of abdominal pain MRCP results pending still with some pain no vomiting NPO - History Source History Provided By: Patient, Family Member Limitations to Obtaining History: Language Barrier - Past Medical History Hepatobiliary: Yes: Cholelithiasis - Past Surgical History Past Surgical History: Yes: Tubal Ligation - Alcohol/Substance Use Hx Alcohol Use: No - Smoking History Smoking history: Never smoked Have you smoked in the past 12 months: No - Social History Usual Living Arrangement: With Child ADL: Independent 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 denies: Chest Pain Respiratory: reports: No Symptoms Gastrointestinal: reports: Abdominal Pain, Nausea, Vomiting Physical Exam Vital Signs: Vital Signs Temperature 97.9 F 07/09/18 14:09 Pulse Rate 62 07/09/18 14:09 Respiratory Rate 18 07/09/18 14:09 Blood Pressure 111/71 07/09/18 14:09 O2 Sat by Pulse Oximetry (%) 97 07/09/18 09:00 Constitutional: Yes: Well Nourished, No Distress, Calm Eyes: Yes: Conjunctiva Clear HENT: Yes: Atraumatic, Normocephalic Neck: Yes: Supple, Trachea Midline Cardiovascular: Yes: Regular Rate and Rhythm Respiratory: Yes: Regular, CTA Bilaterally Gastrointestinal: Yes: Normal Bowel Sounds, Soft, Tenderness (minimal RUQ discomfort to palpation) Extremities: Yes: WNL Edema: No Psychiatric: Yes: Alert, Oriented Labs: CBC, BMP 07/08/18 08:00 07/08/18 08:00 Imaging - Results Chest X-ray: Report Reviewed, Image Reviewed MRI: Pending Problem List - Problems (1) Cholecystitis Code(s): K81.9 - CHOLECYSTITIS, UNSPECIFIED Assessment/Plan awaiting MRCP for surgery in am continue zosyn periop per surgery please call back if needed
--- NOTE | 2018-07-09 17:39 | PN ---
Teaching Attending Note Name of Resident: Kailash Eubanks ATTENDING PHYSICIAN STATEMENT I saw and evaluated the patient. I reviewed the resident's note and discussed the case with the resident. I agree with the resident's findings and plan as documented. SUBJECTIVE: OBJECTIVE: Vital Signs Temperature 97.9 F 07/09/18 14:09 Pulse Rate 62 07/09/18 14:09 Respiratory Rate 18 07/09/18 14:09 Blood Pressure 111/71 07/09/18 14:09 O2 Sat by Pulse Oximetry (%) 97 07/09/18 09:00 GENERAL: Awake, alert, and fully oriented, in no acute distress. HEAD: Normal with no signs of trauma. EYES: Pupils equal, round and reactive to light, extraocular movements intact EARS, NOSE, THROAT: Moist mucous membranes. LUNGS: Breath sounds equal, clear to auscultation bilaterally. No wheezes, and no crackles. No accessory muscle use. HEART: Regular rate and rhythm, normal S1 and S2 without murmur, rub or gallop. ABDOMEN: mild abdominal tenderness to palpation, positive bowel sounds LOWER EXTREMITIES: 2+ pulses, warm, well-perfused. No calf tenderness. No peripheral edema. NEUROLOGICAL: Cranial nerves II-XII intact. Normal speech. PSYCHIATRIC: Cooperative. Good eye contact. Appropriate mood and affect. SKIN: Warm, dry, normal turgor, no rashes or lesions noted, normal capillary refill. CBCD WBC 8.7 K/mm3 (4.0-10.0) 07/08/18 08:00 RBC 4.27 M/mm3 (3.60-5.2) 07/08/18 08:00 Hgb 12.8 GM/dL (10.7-15.3) 07/08/18 08:00 Hct 39.4 % (32.4-45.2) 07/08/18 08:00 MCV 92.4 fl (80-96) 07/08/18 08:00 MCHC 32.5 g/dl (32.0-36.0) 07/08/18 08:00 RDW 13.8 % (11.6-15.6) 07/08/18 08:00 Plt Count 215 K/MM3 (134-434) 07/08/18 08:00 MPV 7.9 fl (7.5-11.1) 07/08/18 08:00 CMP Sodium 143 mmol/L (136-145) 07/08/18 08:00 Potassium 4.0 mmol/L (3.5-5.1) 07/08/18 08:00 Chloride 109 mmol/L (98-107) H 07/08/18 08:00 Carbon Dioxide 28 mmol/L (21-32) 07/08/18 08:00 Anion Gap 7 MMOL/L (8-16) L 07/08/18 08:00 BUN 8 mg/dL (7-18) 07/08/18 08:00 Creatinine 0.7 mg/dL (0.55-1.3) 07/08/18 08:00 Creat Clearance w eGFR > 60 (>60) 07/08/18 08:00 Random Glucose 93 mg/dL (74-106) 07/08/18 08:00 Calcium 8.2 mg/dL (8.5-10.1) L 07/08/18 08:00 Total Bilirubin 0.4 mg/dL (0.2-1) 07/08/18 08:00 AST 10 U/L (15-37) L 07/08/18 08:00 ALT 15 U/L (13-61) 07/08/18 08:00 Alkaline Phosphatase 79 U/L (45-117) 07/08/18 08:00 Total Protein 6.1 g/dl (6.4-8.2) L 07/08/18 08:00 Albumin 3.3 g/dl (3.4-5.0) L 07/08/18 08:00 Current Medications Generic Name Dose Route Start Last Admin Trade Name Thi PRN Reason Stop Dose Admin Acetaminophen 650 mg 07/09/18 10:23 07/09/18 10:38 Tylenol - PO 650 mg Q6H PRN Administration HEADACHE Dextrose/Sodium Chloride 1,000 mls @ 100 mls/hr 07/08/18 03:30 07/09/18 15:55 D5-1/2ns - IV 100 mls/hr ASDIR DAVID Administration Piperacillin Sod/Tazobactam 50 mls @ 100 mls/hr 07/08/18 20:00 07/09/18 17:24 Sod 3.375 gm/ Dextrose IVPB 100 mls/hr Q8H-IV DAVID Administration Protocol Morphine Sulfate 4 mg 07/08/18 11:28 07/08/18 12:46 Morphine Sulfate IVPUSH 4 mg Q4H PRN Administration PAIN LEVEL 6-10 Home Medications Medication Instructions Recorded Naproxen 500 mg PO BID #20 tablet 01/03/18 ASSESSMENT AND PLAN: Patient is a 62 y/o female with a history of gallstones who presents with mid epigastric pain. #Acute biliary colic improved ; US positive for cholelithiasis; dev't r/o choledocholithiasis/Cholecystitis pending MRCP surgical evaluation appreciated. , ID on the case on IV Antibiotics Zosyn , will start clear liquid diet NPO after MN for lap zaheer 07/10/18 . #DVT ppx: SCD's
[2018-07-10] MEDS ORDERED: BUPIVACAINE HCL/PF (5 MG/ML) 30 ML VIAL IJ ONE
[2018-07-10] MEDS ORDERED: DEXTROSE 5%-WATER - 50 ML IVPB ONE ×3 (01:03→17:32)
[2018-07-10] MEDS ORDERED: PIPERACILLIN/TAZOBACTAM 3.375 GM VIAL IVPB ONE ×4 (01:03→17:32)
[2018-07-10] MEDS: PIPERACILLIN/TAZOB 3.375 GM 3.375 GM in DEXTROSE 5%-WATER - 50 ML IVPB SCH ×3 (02:12→18:01)
[2018-07-10] MEDS: DEXTROSE 5%-0.45% SALINE 1,000 ML IV SCH ×3 (04:41→16:32)
[2018-07-10 07:23] LABS: BASO % 0.5 % (0-2.0); EOS % 4.1 % (0-4.5); HEMATOCRIT 39.9 % (32.4-45.2); LYMPH % 30.8 % (8-40); MCH 30.2 pg (25.7-33.7); MCHC 32.7 g/dl (32.0-36.0); MEAN CELL VOLUME 92.2 fl (80-96); MEAN PLT VOLUME 7.9 fl (7.5-11.1); MONO % 7.6 % (3.8-10.2); PLATELET COUNT 212 K/MM3 (134-434); RBC 4.32 M/mm3 (3.60-5.2); RDW 13.7 % (11.6-15.6); WHITE BLOOD COUNT 8.3 K/mm3 (4.0-10.0)
[2018-07-10 07:57] LABS: ANION GAP 7 MMOL/L (8-16); BLOOD UREA NITROGEN 5 mg/dL (7-18); CALCIUM 8.3 mg/dL (8.5-10.1); CHLORIDE 107 mmol/L (98-107); CO2 27 mmol/L (21-32); CREATININE 0.7 mg/dL (0.55-1.3); GLUCOSE,RANDOM 103 mg/dL (74-106); MAGNESIUM 2.2 mg/dL (1.8-2.4); POTASSIUM 3.5 mmol/L (3.5-5.1); SODIUM 141 mmol/L (136-145)
[2018-07-10] MEDS ORDERED: ONDANSETRON 4 MG/2 ML VIAL IVPUSH PRN ×2 (08:16→13:04)
[2018-07-10] MEDS ORDERED: LACTATED RINGERS SOLUTION 1,000 ML IV SCH ×2 (08:30→13:04)
[2018-07-10] MEDS ORDERED: BUPIVACAINE HCL/PF 0.5% (5MG/ML) 10 ML VIAL ONE (08:39)
[2018-07-10] MEDS ORDERED: BENZOIN TINCTURE SWABSTICK TP ONE (08:39)
[2018-07-10] MEDS ORDERED: fentaNYL CITRATE 250 MCG/5 ML VIAL ONE (08:53)
[2018-07-10] MEDS ORDERED: MIDAZOLAM HCL 2 MG/2 ML SINGLE DOSE VIAL ONE (08:53)
--- NOTE | 2018-07-10 10:04 | PN ---
Physical Exam: SUBJECTIVE: Patient is a 62 y/o female with a history of cholelithiasis who presents for cholecystitis. Patient reports she still has similar mid epigastric pain but it is a little better. She has no other complaints, no acute events overnight. Patient to have chlecystectomy today. OBJECTIVE: Vital Signs Temperature 61 F L 07/10/18 08:20 Pulse Rate 61 07/10/18 08:20 Respiratory Rate 20 07/10/18 08:20 Blood Pressure 131/75 07/10/18 08:20 O2 Sat by Pulse Oximetry (%) 98 07/09/18 21:00 GENERAL: Awake, alert, and fully oriented, in no acute distress. HEAD: Normal with no signs of trauma. EYES: Pupils equal, round and reactive to light, extraocular movements intact EARS, NOSE, THROAT: Moist mucous membranes. LUNGS: Breath sounds equal, clear to auscultation bilaterally. No wheezes, and no crackles. No accessory muscle use. HEART: Regular rate and rhythm, normal S1 and S2 without murmur, rub or gallop. ABDOMEN: tenderness to palpation, positive murphys sign, positive bowel sounds LOWER EXTREMITIES: 2+ pulses, warm, well-perfused. No calf tenderness. No peripheral edema. NEUROLOGICAL: Cranial nerves II-XII intact. Normal speech. PSYCHIATRIC: Cooperative. Good eye contact. Appropriate mood and affect. SKIN: Warm, dry, normal turgor, no rashes or lesions noted, normal capillary refill. CBC, BMP 07/10/18 06:30 07/10/18 06:30 Active Medications Acetaminophen (Tylenol -) 650 mg PO Q6H PRN PRN Reason: HEADACHE Last Admin: 07/09/18 10:38 Dose: 650 mg Fentanyl (Sublimaze Injection -) 50 mcg IVPUSH [id number] PRN PRN Reason: PAIN-PACU ORDER X 4 DOSES ONLY Dextrose/Sodium Chloride (D5-1/2ns -) 1,000 mls @ 100 mls/hr IV ASDIR DAVID Last Admin: 07/10/18 04:42 Dose: 100 mls/hr Piperacillin Sod/Tazobactam (Sod 3.375 gm/ Dextrose) 50 mls @ 100 mls/hr IVPB Q8H-IV DAVID; Protocol Last Admin: 07/10/18 02:12 Dose: 100 mls/hr Lactated Ringer's (Lactated Ringers Solution) 1,000 mls @ 75 mls/hr IV ASDIR DAVID Morphine Sulfate (Morphine Sulfate) 4 mg IVPUSH Q4H PRN PRN Reason: PAIN LEVEL 6-10 Last Admin: 07/08/18 12:46 Dose: 4 mg Ondansetron HCl (Zofran Injection) 4 mg IVPUSH Q6H PRN PRN Reason: NAUSEA AND/OR VOMITING ASSESSMENT/PLAN: Patient is a 62 y/o female with a history of gallstones who is pre op cholecystectomy today. #cholecystitis, s/p cholecystectomy day 0 - pre op for cholecystectomy today - Zosyn pre op - monitor clinically after surgery, monitor for flatus - clear liquid diet and advance as tolerated - incentive spirometry - surgery by Dr. Jain - f/u morning labs - pain medication as per anesthesiology #DVT ppx - heparin held - patient on SCD's Dispo: likely tomorrow Visit type - Emergency Visit Emergency Visit: No - New Patient This patient is new to me today: No - Critical Care Critical Care patient: No
[2018-07-10] MEDS ORDERED: DESFLURANE GAS 240 ML BOTTLE IH ONE (10:12)
--- NOTE | 2018-07-10 12:24 | OP ---
Operative Note - Note: Operative Date: 07/10/18 Pre-Operative Diagnosis: Acute cholecystitis/lithiasis Operation: Lap zaheer Post-Operative Diagnosis: Same as Pre-op Surgeon: Chirag Jain Contract Driver: Neto Patiño Anesthesiologist/LIBRARY SALES CONSULTANT: Alex Saucedo Anesthesia: General Specimens Removed: Gall bladder Estimated Blood Loss (mls): 25 Fluid Volume Replaced (mls): 800 Operative Report Dictated: Yes
--- NOTE | 2018-07-10 12:25 | SURG ---
Surgery Detailer Note Detailer: Neto Patiño PA-C Date of Service: 07/10/18 Diagnosis: Acute cholecystitis/Cholelithiasis Procedure: Enoc schwab I was present for the entirety of the operative procedure. For further detail, please refer to operative report. Visit type - Case Type Case Type: ED Admission - New patient This patient is new to me today: Yes Date on this admission: 07/10/18
[2018-07-10] MEDS ORDERED: KETOROLAC TROMETHAMINE 15 MG/ML VIAL IVPUSH PRN (12:29)
[2018-07-10] MEDS ORDERED: ACETAMINOPHEN 325 MG TABLET (FP) PO PRN (13:04)
[2018-07-10] MEDS: KETOROLAC TROMETHAMINE 30 MG/1 ML VIAL IVPUSH SCH (18:00)
--- NOTE | 2018-07-10 20:12 | PN ---
Teaching Attending Note Name of Resident: Moni Ramy ATTENDING PHYSICIAN STATEMENT I saw and evaluated the patient. I reviewed the resident's note and discussed the case with the resident. I agree with the resident's findings and plan as documented. SUBJECTIVE: Patient is s/p lap chol. OBJECTIVE: Vital Signs Temperature 98.1 F 07/10/18 18:48 Pulse Rate 70 07/10/18 18:48 Respiratory Rate 20 07/10/18 18:48 Blood Pressure 108/71 07/10/18 18:48 O2 Sat by Pulse Oximetry (%) 94 L 07/10/18 12:25 GENERAL: Awake, alert, and fully oriented, in no acute distress. HEAD: Normal with no signs of trauma. EYES: Pupils equal, round and reactive to light, extraocular movements intact EARS, NOSE, THROAT: Moist mucous membranes. LUNGS: Breath sounds equal, clear to auscultation bilaterally. No wheezes, and no crackles. No accessory muscle use. HEART: Regular rate and rhythm, normal S1 and S2 without murmur, rub or gallop. ABDOMEN: s/p lap chol. hypoactive bowel sounds LOWER EXTREMITIES: 2+ pulses, warm, well-perfused. No calf tenderness. No peripheral edema. NEUROLOGICAL: Cranial nerves II-XII intact. Normal speech. PSYCHIATRIC: Cooperative. Good eye contact. Appropriate mood and affect. SKIN: Warm, dry, normal turgor, no rashes or lesions noted, normal capillary refill. CBCD WBC 8.3 K/mm3 (4.0-10.0) 07/10/18 06:30 RBC 4.32 M/mm3 (3.60-5.2) 07/10/18 06:30 Hgb 13.0 GM/dL (10.7-15.3) 07/10/18 06:30 Hct 39.9 % (32.4-45.2) 07/10/18 06:30 MCV 92.2 fl (80-96) 07/10/18 06:30 MCHC 32.7 g/dl (32.0-36.0) 07/10/18 06:30 RDW 13.7 % (11.6-15.6) 07/10/18 06:30 Plt Count 212 K/MM3 (134-434) 07/10/18 06:30 MPV 7.9 fl (7.5-11.1) 07/10/18 06:30 CMP Sodium 141 mmol/L (136-145) 07/10/18 06:30 Potassium 3.5 mmol/L (3.5-5.1) 07/10/18 06:30 Chloride 107 mmol/L (98-107) 07/10/18 06:30 Carbon Dioxide 27 mmol/L (21-32) 07/10/18 06:30 Anion Gap 7 MMOL/L (8-16) L 07/10/18 06:30 BUN 5 mg/dL (7-18) L 07/10/18 06:30 Creatinine 0.7 mg/dL (0.55-1.3) 07/10/18 06:30 Creat Clearance w eGFR > 60 (>60) 07/10/18 06:30 Random Glucose 103 mg/dL (74-106) 07/10/18 06:30 Calcium 8.3 mg/dL (8.5-10.1) L 07/10/18 06:30 Total Bilirubin 0.4 mg/dL (0.2-1) 07/08/18 08:00 AST 10 U/L (15-37) L 07/08/18 08:00 ALT 15 U/L (13-61) 07/08/18 08:00 Alkaline Phosphatase 79 U/L (45-117) 07/08/18 08:00 Total Protein 6.1 g/dl (6.4-8.2) L 07/08/18 08:00 Albumin 3.3 g/dl (3.4-5.0) L 07/08/18 08:00 Current Medications Generic Name Dose Route Start Last Admin Trade Name Thi PRN Reason Stop Dose Admin Acetaminophen 650 mg 07/10/18 13:04 07/10/18 16:29 Tylenol - PO 650 mg Q6H PRN Administration HEADACHE Dextrose/Sodium Chloride 1,000 mls @ 100 mls/hr 07/10/18 13:04 07/10/18 16:32 D5-1/2ns - IV 100 mls/hr ASDIR DAVID Administration Piperacillin Sod/Tazobactam 50 mls @ 100 mls/hr 07/10/18 18:00 07/10/18 18:01 Sod 3.375 gm/ Dextrose IVPB 100 mls/hr Q8H-IV DAVID Administration Protocol Ketorolac Tromethamine 15 mg 07/10/18 17:30 07/10/18 18:00 Toradol Injection - IVPUSH 07/15/18 17:29 15 mg Q6H-IV DAVID Administration Home Medications Medication Instructions Recorded Naproxen 500 mg PO BID #20 tablet 01/03/18 US positive for cholelithiasis MRCP: report reviewed ASSESSMENT AND PLAN: Patient is a 62 y/o female with a history of gallstones who presents with mid epigastric pain. #POD #0 s/p lap zaheer. for Acute cholecystitis/lithiasis ; surgeon , Continue IV Antibiotics Zosyn , #DVT ppx: SCD's
[2018-07-11] MEDS: KETOROLAC TROMETHAMINE 30 MG/1 ML VIAL IVPUSH SCH ×2 (01:08→03:24)
[2018-07-11] MEDS ORDERED: DEXTROSE 5%-WATER - 50 ML IVPB ONE (01:44)
[2018-07-11] MEDS ORDERED: PIPERACILLIN/TAZOBACTAM 3.375 GM VIAL IVPB ONE (01:44)
[2018-07-11] MEDS: PIPERACILLIN/TAZOB 3.375 GM 3.375 GM in DEXTROSE 5%-WATER - 50 ML IVPB SCH (01:58)
[2018-07-11] MEDS: DEXTROSE 5%-0.45% SALINE 1,000 ML IV SCH (03:23)
[2018-07-11 07:12] LABS: HEMATOCRIT 34.6 % (32.4-45.2); HEMOGLOBIN 11.5 GM/dL (10.7-15.3); MCH 30.4 pg (25.7-33.7); MCHC 33.2 g/dl (32.0-36.0); MEAN CELL VOLUME 91.4 fl (80-96); PLATELET COUNT 211 K/MM3 (134-434); RBC 3.78 M/mm3 (3.60-5.2); RDW 13.2 % (11.6-15.6); WHITE BLOOD COUNT 8.4 K/mm3 (4.0-10.0)
[2018-07-11 07:33] LABS: ANION GAP 7 MMOL/L (8-16); BLOOD UREA NITROGEN 6 mg/dL (7-18); CALCIUM 8.2 mg/dL (8.5-10.1); CHLORIDE 108 mmol/L (98-107); CO2 28 mmol/L (21-32); CREATININE 0.6 mg/dL (0.55-1.3); GLUCOSE,RANDOM 110 mg/dL (74-106); POTASSIUM 3.8 mmol/L (3.5-5.1); SODIUM 143 mmol/L (136-145)
[2018-07-11] MEDS ORDERED: KETOROLAC TROMETHAMINE 30 MG/1 ML VIAL IVPUSH PRN (08:16)
[2018-07-11] MEDS ORDERED: ACETAMINOPHEN 325 MG TABLET (FP) PO PRN ×2 (09:10→11:58)
--- NOTE | 2018-07-11 09:40 | PN ---
Teaching Attending Note Name of Resident: Moni Ramy ATTENDING PHYSICIAN STATEMENT I saw and evaluated the patient. I reviewed the resident's note and discussed the case with the resident. I agree with the resident's findings and plan as documented. SUBJECTIVE: Patient feels better but c/o having mild pain. OBJECTIVE: Vital Signs Temperature 98.0 F 07/11/18 06:00 Pulse Rate 97 H 07/11/18 06:00 Respiratory Rate 20 07/11/18 06:00 Blood Pressure 117/65 07/11/18 06:00 O2 Sat by Pulse Oximetry (%) 94 L 07/10/18 21:00 GENERAL: Awake, alert, and fully oriented, in no acute distress. HEAD: Normal with no signs of trauma. EYES: Pupils equal, round and reactive to light, extraocular movements intact EARS, NOSE, THROAT: Moist mucous membranes. LUNGS: Breath sounds equal, clear to auscultation bilaterally. No wheezes, and no crackles. HEART: Regular rate and rhythm, normal S1 and S2 without murmur, rub or gallop. ABDOMEN: positive bowel sounds, s/p lap zaheer. LOWER EXTREMITIES: 2+ pulses, warm, well-perfused. No calf tenderness. No peripheral edema. NEUROLOGICAL: Cranial nerves II-XII intact. Normal speech. PSYCHIATRIC: Cooperative. Good eye contact. Appropriate mood and affect. SKIN: Warm, dry, normal turgor, no rashes or lesions noted, normal capillary refill. CBCD WBC 8.4 K/mm3 (4.0-10.0) 07/11/18 06:30 RBC 3.78 M/mm3 (3.60-5.2) 07/11/18 06:30 Hgb 11.5 GM/dL (10.7-15.3) 07/11/18 06:30 Hct 34.6 % (32.4-45.2) 07/11/18 06:30 MCV 91.4 fl (80-96) 07/11/18 06:30 MCHC 33.2 g/dl (32.0-36.0) 07/11/18 06:30 RDW 13.2 % (11.6-15.6) 07/11/18 06:30 Plt Count 211 K/MM3 (134-434) 07/11/18 06:30 MPV 8.0 fl (7.5-11.1) 07/11/18 06:30 CMP Sodium 143 mmol/L (136-145) 07/11/18 06:30 Potassium 3.8 mmol/L (3.5-5.1) 07/11/18 06:30 Chloride 108 mmol/L (98-107) H 07/11/18 06:30 Carbon Dioxide 28 mmol/L (21-32) 07/11/18 06:30 Anion Gap 7 MMOL/L (8-16) L 07/11/18 06:30 BUN 6 mg/dL (7-18) L 07/11/18 06:30 Creatinine 0.6 mg/dL (0.55-1.3) 07/11/18 06:30 Creat Clearance w eGFR > 60 (>60) 07/11/18 06:30 Random Glucose 110 mg/dL (74-106) H 07/11/18 06:30 Calcium 8.2 mg/dL (8.5-10.1) L 07/11/18 06:30 Total Bilirubin 0.4 mg/dL (0.2-1) 07/08/18 08:00 AST 10 U/L (15-37) L 07/08/18 08:00 ALT 15 U/L (13-61) 07/08/18 08:00 Alkaline Phosphatase 79 U/L (45-117) 07/08/18 08:00 Total Protein 6.1 g/dl (6.4-8.2) L 07/08/18 08:00 Albumin 3.3 g/dl (3.4-5.0) L 07/08/18 08:00 Current Medications Generic Name Dose Route Start Last Admin Trade Name Freq PRN Reason Stop Dose Admin Acetaminophen 650 mg 07/11/18 09:10 Tylenol - PO Q6H PRN PAIN LEVEL 6-10 Heparin Sodium (Porcine) 5,000 unit 07/11/18 14:00 Heparin - SQ TID [facility] Home Medications Medication Instructions Recorded Naproxen 500 mg PO BID #20 tablet 01/03/18 US positive for cholelithiasis MRCP: report reviewed ASSESSMENT AND PLAN: Patient is a 62 y/o female with a history of gallstones who presents with mid epigastric pain. #POD #1 s/p lap zaheer. for Acute cholecystitis/lithiasis ; surgeon , Continue IV Antibiotics Zosyn , tolerated diet , will discharge patient home, instructions as per surgeon. #DVT ppx: SCD's
[2018-07-11 09:59] LABS: SGOT/AST 8 U/L (15-37); SGPT/ALT 19 U/L (13-61)
--- NOTE | 2018-07-11 10:45 | PN ---
Progress Note (short form) - Note Progress Note: 62F s/p lap zaheer POD 1. Pt seen at bedside. Pt complains of some mild abd pain. Pt denies n/v, fever, chills. Pt passing flatus. Last Vital Signs Temp Pulse Resp BP Pulse Ox 98.0 F 97 H 20 117/65 94 L 07/11/18 06:00 07/11/18 06:00 07/11/18 06:00 07/11/18 06:00 07/10/18 21:00 CBC, BMP 07/11/18 06:30 07/11/18 06:30 PE: Gen: A&O x3 Resp: breathing comfortably Abd: soft, nondistended, mild tenderness, incisions are clean with no erythema or discharge. Ext: no edema Problem List - Problems (1) S/P cholecystectomy Assessment/Plan: Plan -adv diet -OOB/ambulate -DVT ppx -may consider discharging home later today if ambulating and tolerating PO. Code(s): Z90.49 - ACQUIRED ABSENCE OF OTHER SPECIFIED PARTS OF DIGESTIVE TRACT
[2018-07-11] MEDS ORDERED: traMADol HCL 50 MG TABLET PO PRN (10:54)
--- NOTE | 2018-07-11 13:16 | PATH ---
Surgical Pathology Report Patient Name: GISEL JAMES [facility]. Rec. #: [id number] /Age/Gender: 1955 (Age: 62) / F Account: [id number] Location: [address] [place] [address]/[facility] Taken: 07/10/2018 Received: 07/10/2018 Reported: 07/11/2018 Physicians: MD Edgar Kemp M.D. Specimen(s) Received GALLBLADDER Clinical History Cholecystitis Final Diagnosis GALLBLADDER, LAPAROSCOPIC CHOLECYSTECTOMY: ACUTE AND CHRONIC CHOLECYSTITIS WITH CHOLELITHIASIS. ONE BENIGN PERIDUCTAL LYMPH NODE (0/1). Electronically Signed Moni Frey M.D. Gross Description Received in formalin, labeled "gallbladder," is a 11.5 x 4.6 x 4.0 cm. gallbladder with a 0.4 cm. in length portion of cystic duct attached. There is a 1.6 cm in greatest dimension periductal lymph node present. The outer surface is culver-pink with a focal defect and varies from smooth to shaggy. The lumen contains red blood as well as abundant black, irregular choleliths averaging 1.7 cm in greatest dimension. The mucosa is hyperemic and focally eroded. The wall of the gallbladder is focally edematous and ranges from 0.1-1.0 cm. in thickness. Insurance Broker sections are submitted in 2 cassettes as follows: 1-one bisected lymph node; 2-cystic duct margin and inside sales representative gallbladder. 07/10/201807/10/2018
--- NOTE | 2018-07-11 13:56 | DS ---
Physical Exam: SUBJECTIVE: Patient seen and examined. Patient had been able to tolerate her diet, is passing gas, and is able to ambulate. She reports she has a little bit of pain when she is walking. OBJECTIVE: Vital Signs Temperature 98.0 F 07/11/18 06:00 Pulse Rate 97 H 07/11/18 06:00 Respiratory Rate 20 07/11/18 06:00 Blood Pressure 117/65 07/11/18 06:00 O2 Sat by Pulse Oximetry (%) 94 L 07/10/18 21:00 PHYSICAL EXAM GENERAL: Awake, alert, and fully oriented, in no acute distress. HEAD: Normal with no signs of trauma. EYES: Pupils equal, round and reactive to light, extraocular movements intact EARS, NOSE, THROAT: Moist mucous membranes. LUNGS: Breath sounds equal, clear to auscultation bilaterally. No wheezes, and no crackles. No accessory muscle use. HEART: Regular rate and rhythm, normal S1 and S2 without murmur, rub or gallop. ABDOMEN: tenderness to palpation, positive murphys sign, positive bowel sounds LOWER EXTREMITIES: 2+ pulses, warm, well-perfused. No calf tenderness. No peripheral edema. NEUROLOGICAL: Cranial nerves II-XII intact. Normal speech. PSYCHIATRIC: Cooperative. Good eye contact. Appropriate mood and affect. SKIN: Warm, dry, normal turgor, no rashes or lesions noted, normal capillary refill. LABS CBC, BMP 07/11/18 06:30 07/11/18 06:30 HOSPITAL COURSE: Date of Admission:07/08/18 Patient was admitted for abdominal pain and imaging showed cholecystitis. Patient underwent cholecystectomy on 07/10. Patient received Zosyn pre op. Patient was able to pass gas and tolerate diet post op. Patient is able to walk. Patient instructed to follow up with surgeon as an outpatient. Patient vitals stable. Abd US: development of mild to moderate nonspecific gallbladder overdistension, increased diffuse wall thickening, CBD diameter borderline 0.6 to 0.7 CXR: prominent mediastinum and sharp angles, left base granuloma MRCP: hydropic gallbladder with cholelithiasis and marked wall thickening compatible with cholecystitis, no evidence of ductal dilatation, arterial hyperenhancement with hepatic gallbladder fossa Date of Discharge: 07/11/18 Minutes to complete discharge: 38 Discharge Summary Reason For Visit: COMMON BILE DUCT CALCULUS,CHOLECYSTITIS Current Active Problems S/P cholecystectomy (Acute) Condition: Good - Instructions Diet, Activity, Other Instructions: You were admitted to the hospital for inflammation in your gallbladder. To treat this inflammation your gallbladder was removed. Post Operative Instructions Physical activity Resume your normal everyday activity as tolerated no heavy lifting or exercise until seen by your surgeon. You may walk unlimited amounts of and climb stairs. You may resume driving the car when you feel safe and comfortable behind the wheel. Wound care If you have a bandage, leave it on, and keep dry for 48 - 72 hours. After that time discard the outer bandage. If there are tapes on the skin under the outer bandage, leave them in place. They will peel off in the next 7 to 10 days. Do Not peel them off. You may shower 2 days after surgery. If there are tapes present on the skin, they can get wet. Diet There are no dietary restrictions. Eat healthy, high-fiber foods. Drink 6 to 8 glasses of liquid each day. This will assist in keeping your bowels are regular. Pain management You may take Tylenol or acetaminophen or Ibuprofen (for example, Motrin, Advil etc.) Any pain prescription medication ordered should be taken as prescribed for moderate to severe pain. Call Dr. Jain for any of the following: Severe pain not relieved by medication Fever of 101 or higher Excessive bleeding or drainage on dressing Inability to urinate Call the office at [phone] for a post operative appointment in 7 - 10 days. Please follow up with your primary care physician within one week. Please return to the Emergency Department if you have any fevers, chills, nausea , vomiting, or chest pain. En Espanol Usted fue ingresado en el hospital por inflamacin en gregorio vescula biliar. Para tratar esta inflamacin se extrajo la vescula biliar. Instrucciones post operativas Actividad fsica Reanude gregorio actividad diaria normal segn lo tolere, no levante objetos pesados ? ?ni marce ejercicio hasta que lo wolf gregorio cirujano. Puedes caminar cantidades ilimitadas de y subir escaleras. Puede reanudar la conduccin del automvil cuando se sienta seguro y cmodo al volante. Cuidado de heridas Si tiene un vendaje, djelo puesto y mantngalo seco glenn 48 a 72 horas. Despus de brennen tiempo deseche el vendaje exterior. Si hay cintas en la piel debajo del vendaje externo, djelas en gregorio lugar. Se pelarn en los prximos 7 a 10 bansal. No te los quites. Puede ducharse 2 bansal despus de la ciruga. Si hay cintas presentes en la piel, se pueden mojar. Dieta No hay restricciones dietticas. Coma alimentos saludables, ricos en fibra. Rama de 6 a 8 vasos de lquido al da. [place] ayudar a mantener kayla intestinos regulares. El manejo del dolor Puede marilou Tylenol o paracetamol o ibuprofeno (por ejemplo, Motrin, Advil, etc. ). Cualquier medicamento recetado para el dolor ordenado debe tomarse segn lo prescrito para el dolor moderado a jacoby. Llame al Dr. Jain para cualquiera de los siguientes: Dolor jacoby no aliviado con medicamentos Fiebre de 101 o superior Sangrado excesivo o drenaje en el apsito. Incapacidad para orinar Llame a la oficina al [phone] para rosemarie krishna posterior a la operacin en 7 a 10 bansal. Por favor marce un seguimiento con gregorio mdico de atencin primaria dentro de rosemarie semana. Regrese al Departamento de Emergencias si tiene fiebre, escalofros, nuseas, vmitos o dolor en el pecho. Referrals: Chirag Jain MD [Staff Physician] - 1 Week Disposition: HOME - Home Medications Comprehensive Discharge Medication List: Ambulatory Orders Naproxen 500 mg PO BID #20 tablet 01/03/18 This patient is new to me today: No Emergency Visit: No Critical Care patient: No - Discharge Referral Referred to [facility] Med [facility] No
[2018-07-11] MEDS ORDERED: HEPARIN NA (PORCINE) 5,000 UNITS/ML 1ML VIAL SQ SCH (14:00)
--- NOTE | 2018-07-11 14:10 | PN ---
Progress Note, Physician Chief Complaint: s/p lap cholecystectomy History of Present Illness: post op day one under general anesthesia - Current Medication List Current Medications: Active Medications Acetaminophen (Tylenol -) 650 mg PO Q6H PRN PRN Reason: PAIN LEVEL 1-5 Heparin Sodium (Porcine) (Heparin -) 5,000 unit SQ TID DAVID Last Admin: 07/11/18 13:29 Dose: 5,000 unit Tramadol HCl (Ultram -) 25 mg PO Q8H PRN PRN Reason: PAIN LEVEL 6-10 Last Admin: 07/11/18 11:41 Dose: 25 mg - Objective Vital Signs: Vital Signs Temperature 99.4 F 07/11/18 13:43 Pulse Rate 80 07/11/18 13:43 Respiratory Rate 18 07/11/18 13:43 Blood Pressure 122/75 07/11/18 13:43 O2 Sat by Pulse Oximetry (%) 94 L 07/10/18 21:00 Constitutional: Yes: Well Nourished Cardiovascular: Yes: WNL Respiratory: Yes: WNL Gastrointestinal: Yes: WNL Labs: CBC, BMP 07/11/18 06:30 07/11/18 06:30 INR, PTT INR 1.01 (0.83-1.09) 07/07/18 21:39 Assessment/Plan Complained of pain partially relieved by oral analgesics, no nausea or vomiting , no adverse anesthetic effects. Advised the patient to take more analgesics. No further intervention necessary at this time. Dept of anesthesiology will sign off care
[2018-07-11 18:22] VITALS: BP 125/80; PULSE 58; TEMP 98
--- NOTE | 2018-07-18 13:40 | OP ---
DATE OF OPERATION: 07/10/2018 PREOPERATIVE DIAGNOSIS: Acute cholecystitis, cholelithiasis. POSTOPERATIVE DIAGNOSIS: Acute cholecystitis, cholelithiasis. PROCEDURE: Laparoscopic cholecystectomy. SURGEON: Chirag Jain MD [employer] AIRCREW[employer] MECHANICAL: Neto Patiño PA-C ANESTHESIA: General. OPERATIVE FINDINGS: There was acute cholecystitis and cholelithiasis. The rest of the findings were unremarkable. DESCRIPTION OF PROCEDURE: The patient was placed on the operating room table in supine position. After the induction of general anesthesia, the patient's abdomen was prepped with ChloraPrep and draped in sterile fashion. Time-out was taken and then pneumoperitoneum established above the umbilicus using a Veress needle. Once 15 mm of intra-abdominal pressure was obtained, a 5-mm port was placed at the umbilicus. Additional lateral 5-mm ports and a subxiphoid 12-mm port were placed and laparoscopy carried out, and the previously noted findings were observed. The gallbladder was placed on cephalad and lateral traction, and dissection was begun at the neck of the gallbladder where the peritoneum was opened medially and laterally using blunt and sharp dissection and electrocautery. Dissection continued in the triangle of Calot where the cystic duct was identified coursing from the neck of the gallbladder distally to the common bile duct. It was dissected proximally and distally for length. Similarly, the artery was similarly identified and dissected. A critical view of safety was taken, and then the cystic duct divided proximally and distally using Endo Wilman after it was clipped twice proximally and distally with large hemoclips. The artery was similarly clipped and divided. Hemostasis was checked for and noted to be good and then the gallbladder was removed from the liver bed in a retrograde fashion using electrocautery. Prior to removal from the edge of the liver, hemostasis was again verified and then the gallbladder removed from the edge of the liver, placed in an EndoCatch, and brought out through the subxiphoid port. Pneumoperitoneum was reestablished, hemostasis verified again, and then the 5-mm lateral and subxiphoid ports were removed under laparoscopic vision without evidence of bleeding from the port sites. The umbilical port was removed and the pneumoperitoneum evacuated. All port sites were infiltrated with 0.5% Marcaine and the skin edges closed with 4-0 Biosyn in a subcuticular and continuous fashion. Steri-Strips and Band-Aid dressings were placed and the procedure terminated at this point and the patient aroused from general anesthesia and transferred to the post anesthesia care unit in stable condition awake and alert. ESTIMATED BLOOD LOSS: 25 mL. REPLACEMENTS: Crystalloid. DRAINS: None. SPECIMENS: Gallbladder and contents to pathology. I, Chirag Jain, was physically present in the operating room from the time the patient was placed on the operating room table until he was transferred to the post-anesthesia care unit in my accompaniment. MD SUSAN Hidalgo/[id number] MTDD
== END 2018-07-11 18:47 | disposition home or self-care (01) | DRG 263 ==
LOC: JER 19:58 → JERBED 07-08 00:53 → J5S 07-08 03:29
PROVIDERS: ADMIT Internal Medicine; ATTEND Internal Medicine
PROC: 0FT44ZZ Resection of Gallbladder, Percutaneous Endoscopic Approach (ICD-10-PCS; principal; 2018-07-10 12:00)
DX: K80.00 Calculus of gallbladder with acute cholecystitis without obstruction (principal); R00.1 Bradycardia, unspecified
CPT/HCPCS: 36415; 71045-TC-FY; 74182-TC; 76705-TC; 80048; 80053; 81003; 83036; 83690; 83735; 84100; 84450; 84460; 85025; 85027; 85610; 86850; 86900; 86901; 88304-TC; 90688; 93005; 93010; 94760; 99282-25; G0008; J0131; J1644; J7030